=== PATIENT | female | born 1950 | race Hispanic/Latino ===

== ENCOUNTER 2020-02-28 09:51 | Emergency (ER) | payer MEDICARE ==
[~2020-02-28] VITALS: Ht 160 cm; Wt 58.1 kg
[~2020-02-28 09:51] MED LIST: CELEBREX100 MG PO; LOSARTAN POTASS25 MG PO; SIMVASTATIN40 MG PO; ZOLOFT25 MG PO; [UNRECOGNIZED DRUG - REMARK]
[2020-02-28 10:52] LABS: ABG HCO3 17 mmol/L (22-26); ABG PCO2 25 mmHg (35-45); ABG PH 7.43 (7.35-7.45); ABG PO2 101 mmHg (80-105); ABG TCO2 17
[2020-02-28 10:53] LABS: BASOPHILS # (AUTO) 0.1 (0.0-0.1); BASOPHILS % 1.4 % (0.0-1.0); EOSINOPHILS # (AUTO) 0.1 (0.0-0.4); EOSINOPHILS % 1.7 % (0.0-6.0); HEMATOCRIT 25.6 % (34.2-44.1); HEMOGLOBIN 7.3 g/dL (12.0-16.0); LYMPHOCYTES % 27.5 % (18.0-39.1); MEAN CORPUSCULAR HEMOGLOBIN 17.8 pg (28-32); MEAN CORPUSCULAR HGB CONC 28.5 g/dL (31-35); MEAN CORPUSCULAR VOLUME 62.6 fL (81-99); MONOCYTES # (AUTO) 0.6 (0.2-0.8); MONOCYTES % 7.8 % (4.4-11.3); NEUTROPHILS # (AUTO) 4.4 (2.1-6.9); NEUTROPHILS % 60.9 % (38.7-80.0); PLATELET COUNT 464 x10e3/uL (140-360); RED BLOOD COUNT 4.09 x10e6/uL (3.6-5.1); RED CELL DISTRIBUTION WIDTH 26.5 % (11.7-14.4)
--- OUTSIDE RECORDS SUMMARY | 2020-02-28 10:56 | XMS REPORT | Clinical Summary ---
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 Active simvastatin (ZOCOR) 40 MG Take 40 mg by 0 03/06 tablet mouth every 7 morning. Active sertraline (ZOLOFT) 50 MG Take 50 mg by 0 tablet mouth daily. 7 Active estrogens-methyltestoster Take 1 tablet 0 one (ESTRATEST HS) by mouth 0.625-1.25 mg per tablet daily. Active gabapentin (NEURONTIN) Take 300 mg 0 300 mg capsule by mouth 3 (three) times a day. Active zolpidem (AMBIEN) 10 mg Take 10 mg by 0 tablet mouth nightly as needed for sleep. 04/21/2019 traMADol (ULTRAM) 50 mg Take 1 tablet 75 tablet 0 tabletIndications: (50 mg total) 9 chronic pain by mouth every 8 (eight) hours as needed for moderate pain for up to 30 days .chronic pain. 06/10/2019 traMADol (ULTRAM) 50 mg Take 1 tablet 40 tablet 0 tabletIndications: acute (50 mg total) 9 pain, chronic pain by mouth every 6 (six) hours as needed for moderate pain for up to 30 days .Acute Pain, chronic pain. 07/15/2019 Discontinued (Stop Taking at Discharge) celecoxib (CeleBREX) 200 Take 200 mg 0 MG capsule by mouth 2 (two) times a day. 07/17/2019 cephalexin (KEFLEX) 500 Take 1 20 capsule 0 MG capsule capsule (500 0 mg total) by mouth 4 (four) times a day for 5 days. 08/14/2019 methocarbamol (ROBAXIN) Take 1 tablet 120 tablet 0 500 MG tablet (500 mg 0 total) by mouth 4 (four) times a day as needed for muscle spasms for up to 30 days. 08/14/2019 celecoxib (CeleBREX) 200 Take 1 180 capsule 3 0 MG capsule capsule (200 0 mg total) by mouth 2 (two) times a day for 30 days. 07/15/2019 Discontinued (Stop Taking at Discharge) celecoxib (CeleBREX) 200 Take 1 180 capsule 3 0 MG capsule capsule (200 0 mg total) by mouth 2 (two) times a day for 30 days. 07/15/2019 Discontinued (Stop Taking at Discharge) celecoxib (CeleBREX) 200 Take 1 180 capsule 3 0 MG capsule capsule (200 0 mg total) by mouth 2 (two) times a day for 30 days. 08/31/2019 HYDROcodone-acetaminophen Take 1 tablet 40 tablet 0 (NORCO) 10-325 mg per by mouth 0 tabletIndications: acute every 6 (six) pain hours as needed for moderate pain for up to 30 days .acute pain. Max Daily Amount: 4 tablets 08/31/2019 traMADol (ULTRAM) 50 mg Take 1 tablet 40 tablet 0 tabletIndications: acute (50 mg total) 0 pain, chronic pain by mouth every 6 (six) hours as needed for moderate pain for up to 30 days .acute pain, chronic pain. 08/31/2019 celecoxib (CeleBREX) 200 Take 1 60 capsule 0 0 MG capsule capsule (200 0 mg total) by mouth 2 (two) times a day for 30 days. 08/31/2019 methocarbamol (ROBAXIN) Take 1 tablet 120 tablet 0 500 MG tablet (500 mg 0 total) by mouth 4 (four) times a day for 30 days. 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 difficile colitis 05/20/2017 Ulcerative rectosigmoiditis, with rectal bleeding Acute blood loss anemia 05/18/2017 Hyponatremia 05/18/2017 Bilateral carpal tunnel syndrome Cervical disc disorder at C6-C7 level w ith radiculopathy Cubital tunnel syndrome, bilateral Encounters Care Team Description Date Type Specialty Mirna Cheng MA 08/18/2019 Telephone Orthopedic Surgery Davie Fitzpatrick MD S/P reverse total shoulder arthroplasty, left (Primary Dx) 08/01/2019 Office Visit Orthopedic Surgery Mirna Cheng MA 08/01/2019 Abstract Orthopedic Surgery Davie Fitzpatrick MD Arthritis of left shoulder region (Prima ry Dx) 07/27/2019 Office Visit Orthopedic Surgery Mirna Cheng MA Arthritis of left shoulder region (Prima ry Dx) 07/26/2019 Orders Only Orthopedic Surgery Davie Fitzpatrick MD 07/18/2019 Abstract Orthopedic Surgery Dwight Gillespie 07/15/2019 Patient Quality Outreach Davie Fitzpatrick MD LEFT REVERSE TOTAL SHOULDER REPLACEMENT 07/14/2019 Surgery Orthopedic Surgery Charli Griffith II, MD [place], Miriam, NP 07/14/2019 Anesthesia Orthopedic Surgery Event Davie Fitzpatrick MD Arthritis of left shoulder region 07/14/2019 Hospital Orthopedic Surgery - Encounter 07/15/2019 Davie Fitzpatrick MD 07/13/2019 Telephone Orthopedic Surgery Mirna Cheng MA 07/12/2019 Orders Only Orthopedic Surgery Davie Fitzpatrick MD Preoperative examination (Primary Dx) 07/07/2019 Pre-Admit Pre-Admission Testi ng Testing Appointment Mirna Cheng MA 07/04/2019 Telephone Orthopedic Surgery Caroline Alves MA Lumbar radiculopathy (Primary Dx); Cervical myelopathy (HCC) 06/10/2019 Orders Only Neurosurgery Edenilson Kenny MD Lumbar radiculopathy 06/09/2019 Hospital Radiology Encounter Edenilson Kenny MD Lumbar spondylosis (Primary Dx) 06/09/2019 Office Visit Neurosurgery Caroline Alves MA Lumbar radiculopathy (Primary Dx) 06/09/2019 Orders Only Neurosurgery Davie Fitzpatrick MD 05/18/2019 Telephone Orthopedic Surgery Davie Fitzpatrick MD Bilateral shoulder region arthritis ([facility] Dx); Complete tear of left rotator cuff, unspecified whether traumatic; Incomplete tear of right rotator cuff, unspecified whether traumatic 05/11/2019 Office Visit Orthopedic Surgery Davie Fitzpatrick MD 05/05/2019 Hospital Radiology Encounter Mirna Cheng MA 04/26/2019 Telephone Orthopedic Surgery Davie Fitzpatrick MD Bilateral shoulder region arthritis 04/20/2019 Hospital Radiology Encounter Davie Fitzpatrick MD Bilateral shoulder region arthritis 04/20/2019 Hospital Radiology Encounter Davie Fitzpatrick MD Bilateral shoulder region arthritis ([facility] Dx) 04/04/2019 Office Visit Orthopedic Surgery Garrett Cesar MD Chronic pain syndrome (Primary Dx); Chronic bilateral low back pain with left-sided sciatica; Lumbar radiculopathy 03/22/2019 Office Visit Pain Medicine Derrek Nielson MD 02/28/2019 Hospital Radiology Encounter Derrek Nielson MD Cervical myelopathy (HCC) (Primary Dx); S/P cervical spinal fusion 02/28/2019 Office Visit Neurosurgery after 02/27/2019 Immunizations Name Administration Dates Next Due FLUCELVAX QUAD PF 09/09/2018, 05/18/2017 Social History Date Tobacco Use Types Packs/Day Years Used Former Smoker Cigarettes 0.25 10 Smokeless Tobacco: Never Used Tobacco Cessation: Ready to Quit: Yes; C ounseling Given: Yes Comments: 3-4 cigarettes per night, trying to quit Drinks/Week oz/Week Comments Alcohol Use No Sex Assigned at Date Recorded Not on file Industry Job Start Date Occupation Not on file Not on file Not on file Travel End Travel History Travel Start No recent travel history available. Last Filed Vital Signs Reading Time Taken Comments Vital Sign 160/70 07/15/2019 12:38 PM [facility] Blood Pressure 60 07/15/2019 12:38 PM [facility] Pulse 36.5 C (97.7 F) 07/15/2019 11:09 AM [facility] Temperature 16 07/15/2019 11:09 AM [facility] Respiratory Rate 100% 07/15/2019 11:09 AM [facility] Oxygen Saturation - - Inhaled Oxygen Concentration 44.6 kg (98 lb 6.4 oz) 07/14/2019 8:27 AM [facility] Weight 152.4 cm (5') 07/14/2019 8:27 AM [facility] Height 19.22 07/14/2019 8:27 AM [facility] Body Mass Index Plan of Treatment Health Maintenance Due Date Last Done Comments BREAST CANCER SCREENING 2000 COLONOSCOPY SCREENING 2000 SHINGLES VACCINES (#1) 2000 65+ PNEUMOCOCCAL VACCINE 2015 (1 of 2 - PCV13) INFLUENZA VACCINE 04/05/2020 09/09/2018, 05/18/2017 Implants Device Identifier Shelf Expiration Date Model / Serial / L ot Implanted Type Area Manufactur er 04/13/2020 [id number] / [id number] / LOT NA Graft Bone Tissue Alice Elite Human N/A: N/A MUSCULOSKE Large 10.6 - [id number] - Tissue LET AL [id number] Implants TRANSPLANT Implanted: Qty: 1 on 09/24/2018 by Derrek Mcghee MD at [facility] [address] 10/14/2019 [id number] / [id number] / [id number] Bone Graft Magnifuse Sc 1 X 20cm - Human N/A: N/A [employer] [id number] - [id number] Tissue SPINAL AND Implanted: Qty: 1 on 09/24/2018 by Implants BIO PownceDerrek Cancino MD at [facility] [address] 12/04/2019 [id number] / / [id number] Kit Bone Grft Thred Intrbdy Xsm Ti Human N/A: N/A [employer] Infuse - [id number] Tissue SPINAL AND Implanted: Qty: 1 on 09/24/2018 by Implants TinyMob GamesDerrek Cancino MD at [facility] [address] 04/06/2026 [id number] / / [id number] Vertex Infinity 5.5x25mm Screw - IPM MEDTR ONIC [id number] IMPLANT SOFAMOR Implanted: Qty: 1 on 09/24/2018 by DEVICES Derrek Carrasco MD at [facility] 03/04/2026 [id number] / / [id number] Vertex Infinity 5.5x25mm Screw - IPM MEDTR ONIC [id number] IMPLANT SOFAMOR Implanted: Qty: 3 on 09/24/2018 by DEVICES Derrek Carrasco MD at [facility] [id number] / / Vertex Infinity Set Screw - IPM N/A: N/A ME DTRONIC [id number] IMPLANT SOFAMOR Implanted: Qty: 13 on 09/24/2018 by DEVICES Derrek Smith MD at [facility] [id number] / / Multi Axial Screw [id number] 3.5 X IPM N/A: N/A MEDTR[employer]IC 22mm - [id number] IMPLANT SOFAMOR Implanted: Qty: 2 on 09/24/2018 by DEVICES Derrek Carrasco MD at [facility] [id number] / / Vertex Infinity 3.5x14mm Screw - IPM N/A: N/A [employer] [id number] IMPLANT SOFAMOR Implanted: Qty: 5 on 09/24/2018 by DEVICES Derrek Carrasco MD at [facility] [id number] / / [id number] 3.5 X 300 Mm [place] Chrome Straight IPM ME DTRONIC Billy - [id number] IMPLANT SOFAMOR Implanted: Qty: 2 on 09/24/2018 by DEVICES Derrek Carrasco MD at [facility] 03/13/2024 [id number] / / [id number] 4.5mm Peripheral Screw - 24mm - IPM Left: Shoulder BLAINE [id number] IMPLANT ORTHOPEDIC Implanted: 07/14/[address] [facility] (Quantity not on file) 05/11/2024 [id number] / / [id number] 4.5mm Peripheral Screw - 32mm - IPM Left: Shoulder BLAINE [id number] IMPLANT ORTHOPEDIC Implanted: 07/14/[address] [facility] (Quantity not on file) 04/11/2024 [id number] [id number] / / [id number] 4.5mm Peripheral Screw - 52mm - IPM Left: Shoulder BLAINE [id number] IMPLANT ORTHOPEDIC Implanted: Qty: 1 on 07/14/[address] [facility] 10/31/2023 [id number] / / [id number] Reunion S Press-Fit Humeral Stem, IPM Left: Should er BLAINE 10mm - [id number] IMPLANT ORTHOPEDIC Implanted: 07/14/[address] [facility] (Quantity not on file) 11/03/2023 5573 2E 3606 / / [id number] Glenosphere - 36mm Loretta X 6mm Thk IPM Left: Shoulde r BLAINE 2mm Eccentric - [id number] IMPLANT ORTHOPEDIC Implanted: Qty: 1 on 07/14/[address] [facility] 04/20/2023 [id number] [id number] / / [id number] 6.5mm Center Screw - 32mm - IPM Left: Shoulder ST JOSH [id number] IMPLANT ORTHOPEDIC Implanted: 07/14/[address] [facility] (Quantity not on file) 03/02/2024 5572 [id number] / / [id number] Shoulder Glenoid Baseplate Reunion IPM Left: Shoul sveta BLAINE Rsa - [id number] IMPLANT ORTHOPEDIC Implanted: 07/14/[address] [facility] (Quantity not on file) 03/19/2024 5570 3604 / / [id number] Humeral Cup - 36mm Loretta X 4mm Thk - IPM Left: Shoul sveta BLAINE [id number] IMPLANT ORTHOPEDIC Implanted: Qty: 1 on 07/14/[address] [facility] 09/24/2023 5571 S 3606 / / [id number] Humeral Insert - 36mm X 6mm IPM Left: Shoulder BLAINE Standard - [id number] IMPLANT ORTHOPEDIC Implanted: 07/14/[address] [facility] (Quantity not on file) 04/25/2023 [id number] 4540 / / [id number] 4.5mm Peripheral Screw - 40mm - IPM Left: Shoulder BLAINE [id number] IMPLANT ORTHOPEDIC Implanted: 07/14/[address] [facility] (Quantity not on file) 08/05/2020 [id number] / / [id number] Pin Skull Fxtn Ss Adult - Neurosurgi N/A: N/A INTE GRA [id number] glenn [employer] Implanted: Qty: 1 on 09/24/2018 by Derrek Ceron MD at [facility] [address] Device Identifier Shelf Expiration Date Model / Serial / L ot Explanted Type Area Manufactur er 11/10/2023 [id number] / / [id number] 6.5mm Center Screw - 32mm - IPM Left: Shoulder ST JOSH [id number] IMPLANT ORTHOPEDIC Implanted: 07/14/2019 (Quantity not DEVICES S on file) Explanted: 07/14/2019 at [facility] (Quantity not on file) Procedures Comments Procedure Name Priority Date/Time Associated Diag nosis XR SHOULDER 2+ VW LEFT Routine 08/01/2019 Arthrit is of left 3:48 PM [facility] shoulder region ESTIMATED GFR Routine 07/14/2019 4:57 PM [facility] CREATININE LEVEL Routine 07/14/2019 4:57 PM [facility] POC GLUCOSE Routine 07/14/2019 11:30 AM [facility] SURGICAL PATHOLOGY Routine 07/14/2019 REQUEST 11:00 AM [facility] TRANSFUSE RED BLOOD CELLS Routine 07/14/2019 10:34 AM [facility] ARTERIAL LINE Routine 07/14/2019 9:44 AM [facility] MD AN ELECTIVE Routine 07/14/2019 ENDOTRACHEAL AIRWAY 9:21 AM [facility] SHOULDER REPLACEMENT, 07/14/2019 Arthritis of le ft TOTAL, REVERSE 9:08 AM [facility] shoulder region Case Notes BEACH CHAIR POSITION, INTERSCALE NE BLOCK W/ PAIN PUMP, SHOULDER ULTRA SLING Special Needs BEACH CHAIR POSITION, INTERSCALE NE BLOCK W/ PAIN PUMP, SHOULDER ULTRA SLING ANESTHESIA PERIPHERAL Routine 07/14/2019 BLOCK 8:53 AM [facility] POC GLUCOSE Routine 07/14/2019 8:36 AM [facility] GRAM STAIN Routine 07/07/2019 2:14 PM [facility] URINE CULTURE Routine 07/07/2019 2:14 PM [facility] ECG PRE/POST OP Routine 07/07/2019 Preoperative e xamination 12:16 PM [facility] URINALYSIS SCREEN AND Routine 07/07/2019 Preopera tive examination MICROSCOPY, WITH REFLEX 12:05 PM [facility] TO CULTURE PREPARE RBC Routine 07/07/2019 12:04 PM [facility] ESTIMATED GFR Routine 07/07/2019 12:04 PM [facility] TYPE AND SCREEN Routine 07/07/2019 Preoperative e xamination 12:04 PM [facility] HEMOGLOBIN A1C Routine 07/07/2019 Preoperative ex amination 12:04 PM [facility] CBC HEMOGRAM Routine 07/07/2019 Preoperative ex amination 12:04 PM [facility] COMPREHENSIVE METABOLIC Routine 07/07/2019 Preope rative examination PANEL 12:04 PM [facility] XR LUMBAR SPINE AP Routine 06/09/2019 Lumbar radi culopathy LATERAL FLEXION AND 2:28 PM [facility] EXTENSION MRI SHOULDER WO CONTRAST Routine 05/05/2019 Bilat eral shoulder region LEFT 9:10 AM CDT arthritis MRI SHOULDER WO CONTRAST Routine 04/20/2019 Bilat eral shoulder region RIGHT 3:45 PM CDT arthritis EMG Routine 04/14/2019 Bilateral shoul sveta region 2:36 PM CDT arthritis XR SHOULDERS BILATERAL Routine 04/04/2019 Acute p ain of both 1:27 PM CDT shoulders after 02/27/2019 Results * XR Shoulder 2+ Vw Left (08/01/2019 3:48 PM [facility]) Specimen Narrative Performed At [facility] Status post left reverse tsa without lo osening or fracture Performing Organization Address City/State/Zipcode Ph one Number [facility] [address] [place] [address] * Estimated GFR (07/14/2019 4:57 PM [facility]) Only the most recent of 2 results within the time period is included. Estimated GFR >=90 mL/min/1.73 m2 [facility] Comment: RELIGION [facility] Interpretation G1 >=90 Normal or high G2 60-89 Mildly decreased G3a 45-59 Mildly to moderately decreased G3b 30-44 Moderately to severely decreased G4 15-29 Severely decreased G5 <15 Kidney failure The eGFR was calculated using the Chronic Kidney Disease Epidemiology Collaboration (CKD-EPI) equation. Interpretation is based on recommendations of the National Kidney Foundation-Kidney Disease Outcomes Quality Initiative (NKF-KDOQI) published in 2014. Specimen Plasma specimen Performing Organization Address City/[facility] one Number [facility] DEPARTMENT OF [address] [place] [address] PATHOLOGY AND GENOMIC MEDICINE [address] * Creatinine level (07/14/2019 4:57 PM [facility]) Pathologist [facility] Creatinine 0.59 0.50 - 0.90 mg/dL [facility] Specimen Plasma specimen Performing Organization Address [facility] one Number [facility] DEPARTMENT OF [address] [place] [address] PATHOLOGY AND GENOMIC MEDICINE [address] * POC glucose (07/14/2019 11:30 AM [facility]) Only the most recent of 2 results within the time period is included. [facility] POC glucose 113 (H) 65 - 99 mg/dL [facility] Comment: RELIGION It Business Analyst Name: [facility] Device ID: [id number] Chartable: [facility] Notified RN Specimen Performing Organization Address [facility] one Number [facility] DEPARTMENT OF [address] [place] [address] PATHOLOGY AND GENOMIC MEDICINE [address] * Surgical pathology request (07/14/2019 11:00 AM [facility]) Pathologist [facility]PART[facility] OF PATHOLOGY AND GENOMIC MEDICINE Surgical See link below for PDF Lab [facility] pathology Report OF PATHOLOGY report AND GENOMIC MEDICINE Result status This is Final Report for [facility] [id number] OF PATHOLOGY AND GENOMIC MEDICINE Specimen Performing Organization Address [facility] one Number [facility] DEPARTMENT OF [address] [place] [address] PATHOLOGY AND GENOMIC MEDICINE * Transfuse RBC (07/14/2019 10:34 AM [facility]) * Arterial line (07/14/2019 9:44 AM [facility]) Narrative Performed At [facility] 07/14/2019 9:44 AM Arterial line Performed by: Charli Griffith II, M D Authorized by: Charli Griffith II, MD Patient Location: OR Start Time: 07/14/2019 9:44 AM End Time: 07/14/2019 9:44 AM Staff: Performed by: Anesthesiologist Pre-procedure: patient identified, IV c hecked, site and side verified, risks and benefits discussed, procedure verified, surgical consent complete, patient position confirmed, m onitors and equipment checked and pre-op evaluation complete MSBT: antiseptic used, hand hygiene per formed and cap/gown used by other personnel Indications: Indications: hemodynamic monitoring Anesthesia: Anesthesia: General Procedure Details: Arterial Line placement: Placed pos t induction Line placement site: Radial Line placement side: Right Arterial line gauge: 20 G Number of attempts: 1 Ultrasound guidance used: Yes Post-procedure: Post-procedure: Sterile dressing ap plied Post procedure circulation, sensation , movement: Unable to assess Patient tolerance: Patient tolerate d the procedure well with no immediate complications * Airway (07/14/2019 9:21 AM [facility]) Narrative Performed At [facility] 07/14/2019 10:20 A M Airway Date/Time: 07/14/2019 9:21 AM Performed by: Charli Griffith II, M D Authorized by: Charli Griffith II, MD Location: OR Urgency: Elective Difficult Airway: No Resident/LAW FIRM CONSULTANT/AA: [facility] Performed by: resident/LAW FIRM CONSULTANT/AA Preoxygenated with 100% O2: Yes C-spine Precautions Maintained Througho ut: Yes Mask Ventilation: Easy mask Final Airway Type: Endotracheal airwa y Final Endotracheal Airway: ETT Cuffed: Yes Technique Used: Video laryngoscopy Devices/Methods Used in Placement: In tubating stylet Insertion Site: Oral Blade Type: Riley Laryngoscope Blade/Videolaryngoscope Bl emelia Size: 3 ETT Size (mm): 7.0 Cuff at minimum occlusion pressure: Yes Measured from: Lips ETT to Lips (cm): 21 Placement Verified by: CO2 detection, d irect visualization and equal breath sounds Laryngoscopic view: Grade I - full vi ew of glottis Number of Attempts at Approach: 1 #3 glidescope used for intubation d/t p revious spinal surgery. Atraumatic. Dentition unchanged * Peripheral Block (07/14/2019 8:53 AM [facility]) Narrative Performed At Charli Griffith II, MD 07/14/19 8:53 AM Peripheral Block Performed by: Charli Griffith II, M D Authorized by: Charli Griffith II, MD Patient Location: Pre-op Start Time: 07/14/2019 8:40 AM End Time: 07/14/2019 8:51 AM Reason for Block: at surgeon's request, post-op pain management Staff: Performed by: Anesthesiologist Preprocedure: patient identified, IV ch ecked, site and side verified, risks and benefits discussed, procedure verified, surgical consent complete, patient position confirmed, m onitors and equipment checked, pre-op evaluation complete, site marked and coagulation status reviewed Peripheral Nerve Block: Patient Position: Supine Prep: ChloraPrep Monitoring: Blood pressure monitori ng, continuous pulse oximetry and heart rate Block Type: Interscalene Laterality: Left Injection Technique: Catheter inserti on Procedures: ultrasound guided Ultrasound documentation: Images save d on hard disk and printed/placed in chart Local Infiltration (See MAR for details ): Ropivacaine Needle: Needle Type: Pajunk Needle Gauge: 19 G Needle Length: 10 cm Catheter Size: 20 G Catheter at Skin Depth: 6 cm Assessment: Injection Assessment: Visualized ne edle/local anesthetic surrounding nerve, visualized pertinent vascular st ructures and nerves, needle tip visualized at all times during injectio n of medication, no symptoms of intraneural/intravenous injection and i ntermittent aspiration during local anesthetic administration Paresthesia Pain: None Heart Rate Change: No Slow Fractionated Injection: Yes Block outcome: No apparent complica tions, patient comfortable and patient tolerated procedure well * Gram stain (07/07/2019 2:14 PM [facility]) Gram stain No WBC's or organisms seen. [facility] result Comment: RELIGION Specimen Information HOSPITAL Specimen Source: Urine Specimen Site: Clean catch Specimen Urine Performing Organization Address City/State/Zipcode Ph one Number [facility] DEPARTMENT OF [address] [place] [address] PATHOLOGY AND GENOMIC MEDICINE [address] * Urine culture (07/07/2019 2:14 PM [facility]) Urine culture Escherichia coli MARISSA isolate 10-4 cfu/ml RELIGION [facility] HOSPITAL characteristics of this assay on this isolate were validated by the Microbiology Laboratory at [facility]. This source has not been approved by the U.S. Food and Drug Administration. The results are not intended to be used as the sole means for clinical diagnosis or patient management. The Microbiology Laboratory is authorized under the clinical Laboratory Improvement Amendments of 1988 (CLIA-88) to perform high complexity testing. (A) Comment: Specimen Information Specimen Source: Urine Specimen Site: Clean catch Specimen Urine Antibiotic Method Susceptibility Organism Ampicillin RANDY >16 mcg/mL: Resistant Escherichia coli Amoxicillin/Clavulanate RANDY >16/8 mcg/mL: Resistant Escherichia coli Amikacin RANDY <=4 mcg/mL: Susceptible Escherichia coli Aztreonam RANDY <=1 mcg/mL: Susceptible Escherichia coli Ceftazidime RANDY <=0.5 mcg/mL: Susceptible Escherichia coli Ciprofloxacin RANDY >2 mcg/mL: Resistant Escherichia coli Ceftriaxone RANDY <=0.5 mcg/mL: Susceptible Escherichia coli Cefuroxime Sodium RANDY 8 mcg/mL: Susceptible Escherichia coli Cefazolin RANDY 8 mcg/mL: Resistant Escherichia coli Cefepime RANDY <=0.5 mcg/mL: Susceptible Escherichia coli Nitrofurantoin RANDY <=16 mcg/mL: Susceptible Escherichia coli Cefoxitin RANDY 8 mcg/mL: Susceptible Escherichia coli Gentamicin RANDY 2 mcg/mL: Susceptible Escherichia coli Imipenem RANDY <=0.25 mcg/mL: Susceptible Escherichia coli Levofloxacin RANDY >4 mcg/mL: Resistant Escherichia coli Meropenem RANDY <=0.125 mcg/mL: Susceptible Escherichia coli Tobramycin RANDY 1 mcg/mL: Susceptible Escherichia coli Ampicillin/Sulbactam RANDY >16/8 mcg/mL: Resistant Escherichia coli Trimethoprim/Sulfamethoxazole RANDY >2/38 mcg/mL: Resistant Escherichia coli Tetracycline RANDY <=1 mcg/mL: Susceptible Escherichia coli Piperacillin/Tazobactam RANDY >64/4 mcg/mL: Resistant Escherichia coli Ertapenem RANDY <=0.125 mcg/mL: Susceptible Escherichia coli Tigecycline RANDY <=0.5 mcg/mL: Susceptible Escherichia coli Performing Organization Address City/State/Zipcode Ph one Number [facility] DEPARTMENT OF [address] [place] [id number] PATHOLOGY AND GENOMIC MEDICINE [place] [facility] [address] [place] [address] HOSPITAL * ECG Pre/Post Op (07/07/2019 12:16 PM [facility]) Ventricular 54 [facility] rate Atrial rate 54 [facility] MD interval 124 [facility] QRSD interval 124 [facility] QT interval 434 [facility] QTC interval 411 [facility] P axis 1 59 [facility] QRS axis 1 17 [facility] T wave axis 56 [facility] EKG impression Sinus bradycardia-Right bundle [facility] MU SE branch block-Abnormal ECG-In automated comparison with ECG of 23-AUG-2018 08:44,-Right bundle branch block has replaced Incomplete right bundle branch block- Specimen Narrative Performed At This result has an attachment that is n ot available. Performing Organization Address City/[facility] Ph one Number [facility] MUSE [address] [place] [address] * Urinalysis screen and microscopy, with reflex to culture (07/07/2019 12:05 PM [facility]) Specimen site Clean catch [facility] Color, UA Straw [facility] Appearance, UA Clear [facility] Specific 1.014 1.001 - 1.035 [place] gravity, [facility] pH, UA 7.0 5.0 - 8.5 [facility] Protein, UA Negative Negative [facility] Glucose, UA Negative Negative [facility] Ketones, UA Negative Negative [facility] Bilirubin, UA Negative Negative [facility] Blood, UA Negative Negative [facility] Nitrite, UA Negative Negative [facility] Urobilinogen, <2.0 <2.0 [facility] Leukocyte Trace (A) Negative [place] esterase, [facility] Epithelial 2 /HPF [place] cells, [facility] Round 1 0 - 1 /HPF [place] epithelial RELIGION cells, HOSPITAL WBC, UA 4 0 - 4 /HPF [facility] RBC, UA <1 0 - 5 /HPF [facility] Bacteria, UA None seen None seen [facility] Yeast, UA None seen [facility] Yeast with None seen [place] [facility] Hyaline casts, 1 /LPF [facility] Specimen Urine Performing Organization Address City/[facility] Ph one Number [facility] DEPARTMENT OF [address] [place] [address] PATHOLOGY AND GENOMIC MEDICINE [address] * CBC hemogram (07/07/2019 12:04 PM [facility]) WBC 6.52 4.50 - 11.00 k/uL [facility] RBC 3.76 (L) 4.20 - 5.50 m/uL [facility] HGB 9.7 (L) 12.0 - 16.0 g/dL [facility] HCT 31.1 (L) 37.0 - 47.0 % [facility] MCV 82.7 82.0 - 100.0 fL [facility] MCH 25.8 (L) 27.0 - 34.0 pg [facility] MCHC 31.2 31.0 - 37.0 g/dL [facility] RDW - SD 55.8 (H) 37.0 - 55.0 fL [facility] MPV 9.8 8.8 - 13.2 fL [facility] Platelet count 371 150 - 400 k/uL [facility] Nucleated RBC 0.00 /100 WBC [facility] Specimen Blood Performing Organization Address [facility] Ph one Number [facility] DEPARTMENT OF [address] [place] [address] PATHOLOGY AND GENOMIC MEDICINE [address] * Prepare RBC (07/07/2019 12:04 PM [facility]) Product name Apheresis -1 LR #2 [facility] Unit number [id number] [facility] Product code [id number] [facility] Dispense status Transfused [facility] Blood [id number] [place] expiration date [facility] Blood type code 5100 [facility] Blood type O POSITIVE [facility] Compatibility Compatible [facility] Product name Red Blood Cells -1, Leukored [facility] Unit number [id number] [facility] Product code [id number] [facility] Dispense status Returned to BB not transfused [facility] Blood [id number] [place] expiration date [facility] Blood type code 5100 [facility] Blood type O POSITIVE [facility] Compatibility Compatible [facility] Specimen Performing Organization Address City/[facility] Ph one Number [facility] DEPARTMENT OF [address] [place] [address] PATHOLOGY AND GENOMIC MEDICINE [address] * Type and screen (07/07/2019 12:04 PM [facility]) ABO grouping O [facility] Rh type POS [facility] Antibody screen NEG [place] (gel) [facility] Specimen Blood Performing Organization Address City/State/Zipcode Ph one Number [facility] DEPARTMENT OF [address] [place] [address] PATHOLOGY AND GENOMIC MEDICINE [address] * Hemoglobin A1c (07/07/2019 12:04 PM [facility]) Hemoglobin A1C 6.4 (H) 4.0 - 5.6 % [place] Comment: [facility]IGION HbA1c cutoffs for diagnosing HOSPITAL diabetes: 4.0% - 5.6% = normal 5.7% - 6.4% = increased risk for diabetes (prediabetes)9 >=6.5% = diabetes9 Goals for glycemic control (ADA 2016) < 7.0% Target for non adults with diabetes. More or less stringent targets may be appropriate for individual patients. <7.5% Target for Children and adolescents with type 1 diabetes. Specimen Blood Performing Organization Address [facility] Ph [facility] Number [facility] DEPARTMENT OF [address] [place] [address] PATHOLOGY AND GENOMIC MEDICINE [address] * Comprehensive metabolic panel (07/07/2019 12:04 PM [facility]) Sodium 141 135 - 148 mEq/L [facility] Potassium 4.2 3.5 - 5.0 mEq/L [facility] Chloride 102 98 - 112 mEq/L [facility] CO2 23 (L) 24 - 31 mEq/L [facility] Anion gap 16@ANIO (H) 7 - 15 mEq/L [facility] BUN 20 8 - 23 mg/dL [facility] Creatinine 0.61 0.50 - 0.90 mg/dL [facility] Glucose 71 65 - 99 mg/dL [facility] Calcium 9.4 8.8 - 10.2 mg/dL [facility] Protein 7.1 6.3 - 8.3 g/dL [place] Comment: RELIGION Wisechg6297.6-7.0 g/dL [facility] 1 mbfx4282.4-7.6 g/dL 7 months-0umkj272.1-7.3 g/dL 1-2 endkv680.6-7.5 g/dL >3 uvanw525.0-8.0 g/dL 18-3399229.3-8.3 g/dL Albumin 3.5 3.5 - 5.0 g/dL [facility] A/G ratio 1.0 0.7 - 3.8 [facility] Alkaline 82 35 - 104 U/L [place] phosphatase [facility] AST 13 10 - 35 U/L [facility] ALT 7 5 - 50 U/L [facility] Total bilirubin <0.2 0.0 - 1.2 mg/dL [facility] Specimen Plasma specimen Performing Organization Address City/State[facility] Ph one Number [facility] DEPARTMENT OF [address] [place] [address] [address] [facility] [address] [place] [id number] [place] [address] * XR Lumbar Spine Ap Lateral Flexion And Extension (06/09/2019 2:28 PM [facility]) Specimen Narrative Performed At EXAMINATION: XR LUMBAR SPINE AP LATERAL FLEXION A ND EXTENSION [facility] CLINICAL HISTORY: M54.16 Radiculopath y lumbar region, lumbar radiculopathy COMPARISON: September 21, 2018 IMPRESSION: 4 views of the lumbar spine were obtain ed. 5 nonrib-bearing lumbar type vertebrae. L3-L5 posterior fusion with transpedicu lar screws and interconnecting rods. Laminectomy changes at these levels. So lid bony bridging of the L4-5 disc level. No significant bony bridging of the L3- 4 disc level. Prominent dextroscoliosis centered at t he L2-3 level. Left lateral listhesis at L2-3. Grade 1 anterolisthesis at L2-3. Prominent disc space narrowing and endp late degenerative changes at L2-3. No compression fractures or aggressive bony lesions. No abnormal motion on flexion-extension views. [id number] Procedure Note Interface, Radiology Results Incoming - 06/09/2019 3:55 PM [facility] EXAMINATION: XR LUMBAR SPINE AP LATERAL FLEXION AND EXTENSION CLINICAL HISTORY: M54.16 Radiculopathy lumbar region, lumbar radiculopathy COMPARISON: September 21, 2018 IMPRESSION: 4 views of the lumbar spine were obtaine d. 5 nonrib-bearing lumbar type vertebrae. L3-L5 posterior fusion with transpedicular screws and interconnecting rods. Laminectomy changes at these levels. Solid bony bridging of the L4-5 disc level. No significant bony bridging of the L3-4 disc level. Prominent dextroscoliosis centered at the L2-3 level. Left lateral listhesis at L2-3. Grade 1 anterolisthesis at L2-3. Prominent disc space narrowing and endplate degenerative changes at L2-3. No compression fractures or aggressive bony lesions. No abnormal motion on flexion-extension views. 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 COMPARISON: None available FINDINGS: 1. Rotator cuff: Chronic full-thickness full width retracted tears of the supraspinatus and infraspinatus tendons with retraction of the torn tendon stump to the level of the glenoid by approxim ately 5 cm. The subscapularis tendon demonstrates severe tendinosis with low-grade partial thick ness tearing of the superior subscapularis footprint. 2. Bursa: Moderate subacromial subdelto id bursitis. 3. Biceps tendon: The long head of the biceps tendon is located within the bicipital groove. Severe intra-articula r biceps tendinosis with partial-thickness tearing. 4. Labrum: Circumferentially torn and d egenerated. 5. Acromioclavicular joint: Type II acr omion process. Mild to moderate osteoarthrosis 6. Glenohumeral joint: Superior migrati on of the humeral head with severe narrowing of the acromiohumeral interva l. There is also capsular tearing and laxity of the posterior glenohumeral ca psule with posterior subluxation of the humeral head relative to the glenoid. 7. Articular cartilage: Grade IV chondr omalacia and hbns-hs-pvln apposition. 8. Joint Fluid:A small joint effusion i s present. No definite loose body is seen. Diffuse synovitis. Fluid in the s ubcoracoid bursa consistent with a full-thickness rotator cuff tear. 9. Bone marrow: Osseous remodeling subc hondral edema and cyst formation involving the glenoid more than the pro ximal humerus. No fracture or definite suspicious bony lesion is appreciated. 10. Soft tissues: Severe atrophy of sup raspinatus and infraspinatus. Moderate subscapularis atrophy. Mild to moderate loss of deltoid muscle bulk. IMPRESSION: 1.Superior migration of the humeral hea d with chronic full-thickness full width retracted supraspinatus and infraspinat us tears with severe muscle atrophy. 2.Advanced rotator cuff arthropathy wit h full-thickness chondral loss and qmbj-fn-[id number] apposition. 3.Additional findings and details as ab ove. [id number] Procedure Note Hm Interface, Radiology Results Incoming - 05/05/2019 10:07 AM CDT EXAMINATION: MRI SHOULDER WO CONTRAST LEFT CLINICAL HISTORY: M19.011 Primary osteoarthritis right shoulder, M19.012 Primary osteoarthritis left shoulder, Shoulder pain acute persistent xray and exam nonspecific TECHNIQUE: Multiplanar multisequence MR imaging of the shoulder was performed without contrast. COMPARISON: None available FINDINGS: 1. Rotator cuff: Chronic full-thickness full width retracted tears of the supraspinatus and infraspinatus tendons with retraction of the torn tendon stump to the level of the glenoid by approximately 5 cm. The subscapularis tendon demonstrates severe tendinosis with low-grade partial thickness tearing of the superior subscapularis footprint. 2. Bursa: Moderate subacromial subdeltoi d bursitis. 3. Biceps tendon: The long head of the b iceps tendon is located within the bicipital groove. Severe intra-articular biceps tendinosis with partial- thickness tearing. 4. Labrum: Circumferentially torn and de generated. 5. Acromioclavicular joint: Type II acro mion process. Mild to moderate osteoarthrosis 6. Glenohumeral joint: Superior migratio n of the humeral head with severe narrowing of the acromiohumeral interval. There is also capsular tearing and laxity of the posterior glenohumeral capsule with posterior subluxation of the humeral head relative to the glenoid. 7. Articular cartilage: Grade IV chondro malacia and efgz-bq-hcsd apposition. 8. Joint Fluid:A small joint effusion is present. No definite loose body is seen. Diffuse synovitis. Fluid in the subcoracoid bursa consistent with a full- thickness rotator cuff tear. 9. Bone marrow: Osseous remodeling subch ondral edema and cyst formation involving the glenoid more than the proximal humerus. No fracture or definite suspicious bony lesion is appreciated. 10. Soft tissues: Severe atrophy of supr aspinatus and infraspinatus. Moderate subscapularis atrophy. Mild to moderate loss of deltoid muscle bulk. IMPRESSION: 1.Superior migration of the humeral head with chronic full-thickness full width retracted supraspinatus and infraspinatus tears with severe muscle atrophy. 2.Advanced rotator cuff arthropathy with full-thickness chondral loss and msfm-vf-euzc apposition. 3.Additional findings and details as abo ve. [id number] Performing Organization Address City/State/Zipcode Ph one Number [facility] [address] [place] [address] * MRI Shoulder Wo Contrast Right (04/20/2019 3:45 PM CDT) Specimen Narrative Performed At [facility] EXAMINATION: MRI SHOULDER WO CONTRAST RIGHT CLINICAL HISTORY: M19.011 Primary ost eoarthritis right shoulder, M19.012 Primary osteoarthritis left shoulder, Shoulder pain acute persistent xray and exam nonspecific TECHNIQUE: Multiplanar multisequence MR imaging of the right shoulder was performed without contrast. COMPARISON: X-ray 04/04/2019 IMPRESSION: 1.Motion artifact degrades image qualit y and decreases sensitivity of exam. ROTATOR CUFF: High-grade interstitial i nsertional tear spanning the width of the supraspinatus footprint, overall 13 mm, with retraction of 8 mm. Moderate volumetric though no fatty atrophy. Low -grade interstitial microtearing throughout the infraspinatus footprint without signifi cant retraction. Detail limited by motion. Mild fatty though no volumetric atrophy. Teres minor well maintained. Mild subscapularis tendinosis. LABRUM: Posterosuperior complex tear wi th synovitis interposed between the chondral labral junction. BICEPS TENDON: Mild to moderate extra a rticular bicipital tenosynovitis and intra-articular tendinitis with low-gra de interstitial partial tearing most pronounced towards the anchor. GLENOHUMERAL JOINT: Superior decenterin g of the humeral head. Full-thickness chondral loss across both sides of the glenohumeral joint most pronounced on the glenoid side, with reactive marrow ann ge and cystic formation. BONE MARROW: Reactive changes in the gl enohumeral joint as discussed above. AC JOINT: Hypertrophy of AC joint degen erative in etiology. Acromion has a slight lateral downsloping. Type II mor phology. SOFT TISSUES: Mild subacromial-subdelto id bursitis. Mild subcoracoid bursitis. Coracohumeral interval is narrow, 7 mm, with remodeling of the lesser tuberosity humeral head. Mild volumetric muscle loss of the deltoid, though no fatty atrophy. SUMMARY: 1. Moderate to severe glenohumeral join t OA, with rotator cuff tendinopathy and atrophy as detailed above. Mild volumet miguel muscle loss of the deltoid, though no fatty atrophy. 2.Coracohumeral interval with subscapul ari tendinosis and remodeling of the lesser tuberosity can be correlated for clinical evidence of subcoracoid impingement. 3.Lateral downsloping acromion with mil d subjacent bursitis can be correlated for clinical evidence of external impin gement. 4.Other findings as above. Motion trevino ited study. [id number] Procedure Note Hm Interface, Radiology Results Incoming - 04/20/2019 4:37 PM CDT EXAMINATION: MRI SHOULDER WO CONTRAST RIGHT CLINICAL HISTORY: M19.011 Primary osteoarthritis right shoulder, M19.012 Primary osteoarthritis left shoulder, Shoulder pain acute persistent xray and exam nonspecific TECHNIQUE: Multiplanar multisequence MR imaging of the right shoulder was performed without contrast. COMPARISON: X-ray 04/04/2019 IMPRESSION: 1.Motion artifact degrades image quality and decreases sensitivity of exam. ROTATOR CUFF: High-grade interstitial insertional tear spanning the width of the supraspinatus footprint, overall 13 mm, with retraction of 8 mm. Moderate volumetric though no fatty atrophy. Low-grade interstitial microtearing throughout the infraspinatus footprint without significant retraction. Detail limited by motion. Mild fatty though no volumetric atrophy. Teres minor well maintained. Mild subscapularis tendinosis. LABRUM: Posterosuperior complex tear with synovitis interposed between the chondral labral junction. BICEPS TENDON: Mild to moderate extra articular bicipital tenosynovitis and intra-articular tendinitis with low-grade interstitial partial tearing most pronounced towards the anchor. GLENOHUMERAL JOINT: Superior decentering of the humeral head. Full-thickness chondral loss across both sides of the glenohumeral joint most pronounced on the glenoid side, with reactive marrow change and cystic formation. BONE MARROW: Reactive changes in the glenohumeral joint as discussed above. AC JOINT: Hypertrophy of AC joint degenerative in etiology. Acromion has a slight lateral downsloping. Type II morphology. SOFT TISSUES: Mild subacromial-subdeltoid bursitis. Mild subcoracoid bursitis. Coracohumeral interval is narrow, 7 mm, with remodeling of the lesser tuberosity humeral head. Mild volumetric muscle loss of the deltoid, though no fatty atrophy. SUMMARY: 1. Moderate to severe glenohumeral joint OA, with rotator cuff tendinopathy and atrophy as detailed above. Mild volumetric muscle loss of the deltoid, though no fatty atrophy. 2.Coracohumeral interval with subscapula ris tendinosis and remodeling of the lesser tuberosity can be correlated for clinical evidence of subcoracoid impingement. 3.Lateral downsloping acromion with mild subjacent bursitis can be correlated for clinical evidence of external impingement. 4.Other findings as above. Motion limit ed study. [id number] Performing Organization Address City/State/Zipcode Ph one Number [facility] [address] [place] [address] * EMG General Request (04/14/2019 2:36 PM CDT) Impressions Performed At Ms. Lee complains of bilateral should er pain, states that she has severe pain when she abducts her bilateral arm s, has undergone cervical surgery and is being evaluated for neurogenic c ompromise in the bilateral arms. 1) Median motor latencies are bilateral ly delayed with slightly slowed velocities and small amplitudes. 2) Ulnar motor latencies are bilaterall y normal with borderline normal velocity below the elbow on the right a nd normal velocity below the elbow on the left, both with low normal ampli tudes; velocity is minimally slowed across the right elbow with mild amplit ude drop off and is not slowed across the left elbow but is associated with mild amplitude drop off. 3) Sensory responses: a. Median palmar bilaterally mildly delayed, borderline normal amplitude on right; slightly small amplitude on l eft b. Median digital borderline normal latency on right with slightly diminished amplitude; minimally delayed on left with normal amplitude c. Ulnar absent on right; borderline normal late ncy on left with small amplitude d. Proximal ulnr (between wrist and elb ow) normal on right 4) Intramuscular recordings of the bila teral arms suggest minimal chronic bilateral C6 denervation and mild chron ic bilateral C7 denervation, all as noted above. The study suggests very mild bilateral carpal tunnel syndrome, minimal bilateral cubital tunnel syndrome, mini mal bilateral chronic bilateral C6 radiculopathy and mild bilateral chroni c C7 radiculopathy. Associated intrinsic compromise of the bilateral s houlders cannot be excluded. Jairo May M.D. Narrative Performed At This result has an attachment that is n ot available. NERVE CONDUCTION AND ELECTROMYOGRAPHY [facility], [facility]th Floor; [facility] [address]; Name: Eda Lee Date of Procedure: April 14, 2019 Location: Sex: Female Date of : 50 Referring Physician: Davie Fitzpatrick M.D. FAX: Patient is 5 0 ; 100 lbs.; RA 32.5 C; LA 33.0 C Nerve Conduction (Latencies in msec, Amplitudes uV, Distance cm, Velocity M/Sec) Right Motor Nerves Dist. Lat. Prox lat. D. amp. P. Amp. Dist. Velocity Right Median 4.7 8.8 3.9 3.0 19 .0 45.6 Right Ulnar (below elb) 3.3 5.6 6.4 6.3 11.5 49.2 Right Ulnar (across elb) 8.3 4.4 11.4 43.7 Right Sensory Nerves Dist. Lat. Prox lat. Dist. amp. Prox Amp. Distance Velocity Right Median Palmar 2.6 50.0 8.0 Right Median Digital 3.3 14.0 13. 0 Right Ulnar absent 2.8 abse nt 23.0 11.0 Right Super. Radial 2.4 40.0 10.0 Left Motor Nerves Dist. Lat. Prox lat. D. amp. P. Amp. Dist. Velocity Left Median 5.1 7.3 3.6 3.0 18. 3 43.9 Left Ulnar (below elb) 3.3 5.5 7.1 5.5 11.5 53.0 Left Ulnar (across elb) 8.3 4.9 14.3 57.0 Left Sensory Nerves Dist. Lat. Prox lat. Dist. amp. Prox Amp. Distance Velocity Left Median Palmar 2.8 32.3 8.0 Left Median Digital 3.5 19.0 13.0 Left Ulnar 3.0 7.0 11.0 Left Super. Radial 2.3 41.0 10.0 Electromyography (Motor Unit in mV; H=H igh; L=Low; P=Polyphasic; NS=Non-specific) Right Arm Fibs. Pos. Waves Fasc. P olyphasia Motor Units Recruitment Deltoid wnl wnl wnl wnl wnl wn l Biceps wnl wnl wnl wnl wnl wnl Triceps wnl wnl wnl 20HP wnl - 1 Brachioradialis wnl wnl wnl 20HP wnl NS Ext. Dig. Comm. wnl wnl wnl 20HP wnl -1 1st D. Interosseous wnl wnl wnl wnl wnl wnl Left Arm Fibs. Pos. Waves Fasc. Po lyphasia Motor Units Recruitment Deltoid wnl wnl wnl wnl wnl wn l Biceps wnl wnl wnl wnl wnl wnl Triceps wnl wnl wnl 20HP wnl - 1 Brachioradialis wnl wnl wnl 20HP wnl NS Ext. Dig. Comm. wnl wnl wnl 20HP wnl -1 1st D. Interosseous wnl wnl wnl wnl wnl wnl * XR Shoulders Bilateral (04/04/2019 1:27 PM CDT) Specimen Narrative Performed At [facility] Moderate bilateral shoulder arthritis Performing Organization Address City/State/Zipcode Ph one Number [facility] [address] [place] [address] after 02/27/2019 Insurance Type Payer Benefit Subscriber ID Effective Phone Address Plan / Dates Group Medicare MEDICARE MEDICARE xxxxxxxxxxx 2015- [place], PART A AND Present [place] B Medicaid MEDICAID MEDICAID xxxxxxxxx 2017-P resent [phone] (Home) [place] [id number] Eda Lee Reconstruc Self 1950 [phone] (Home) [place] [address] Surgery Advance Directives For more information, please contact: [phone] Patient Nursing Technician Explanation Type Date Recorded Advance Directives, 09/18/2018 1:07 AM Living Will and Medical Power of Driver [place] Advance Directives, 10/27/2017 8:57 AM Living Will and Medical Power of Driver [place] Advance Directives, 09/14/2018 5:52 AM Living Will and Medical Power of Driver [place] POA/09/08/2018 Advance Directives, 10/12/2018 8:20 AM Living Will and Medical Power of Driver Messenger ADV/10/11/2017 Advance Directives, 10/12/2018 8:20 AM Living Will and Medical Power of Driver Messenger
--- OUTSIDE RECORDS SUMMARY | 2020-02-28 10:56 | XMS REPORT | Continuity of Care Document ---
Author Author [facility] t Organization [facility] Address [address] [place] [address] Phone Unavailable Care Team Providers Care Oracle Adf Developer Name Role Phone Bishop MEYER, Kumar Yates PCP Amari MEYER, Davie Attphys Prosper ELLIS, Mirna Attphys Unavailable [facility], Dwight Attphys Unavailable Gladis MEYER, Rajendra Augustin Attphys [facility] Hospital[facility] COMBINATION WORKER, Sarah Beth Attphys [phone] Long ELLIS, Caroline Attphys Unavailable Efraín MEYER, Josseline Attphys Arsenio MEYER, Mehdi Tucker Attphys Nisreen MEYER, Derrek Attphys DAVIE KRISHNAN Admphys Unavailable Payers Payer Name Policy Type Policy Number Effective Date Expiration Date S francy MEDICAREMEDICARE PART A AND [id number]-PresentHOU [facility]ERTIN [facility] 2015 00:00:00 Carl Holly ME[id number] xxxxxxxxx 2017 00:00:00 Carl Holly Problems Condition Name Condition Details Condition Category Status Onset Date Resolution Date Last Treatment Date Treating Clinician Comments Source Shoulder arthritis Shoulder arthritis Disease Active 2019-07-14 00:00:0 0 Carl Holly Arthritis of left shoulder region Arthritis of left shoulder reg ion Disease Active 2019-07-14 00:00:00 Dena kennedy Religion Back pain Back pain Disease Active 2018-09-18 00:00:00 Carl Holly Chronic pain Chronic pain Disease Active 2018-09-08 00:00:00 Carl Holly Attention to colostomy Attention to colostomy Disease Active 2017-10-22 00:00:[address] Iron deficiency anemia due to chronic blood loss Iron deficiency anemia due to chronic blood loss Disease Active 2017-10-22 00:00:00 Carl Holly Stercoral ulcer of rectum Stercoral ulcer of rectum Disease Ac tive 2017-08-18 00:00:00 Carl sol Rectal abscess Rectal abscess Disease Active 2017-05-20 00:00:00 Carl Holly C. difficile colitis C. difficile colitis Disease Active 00:00:00 Carl Holly Ulcerative rectosigmoiditis, with rectal bleeding Ulce rative rectosigmoiditis, with rectal bleeding Disease Active 2017-05-18 00:00:00 Carl Holly Acute blood loss anemia Acute blood loss anemia Disease Active 2017-05-18 00:00:00 Carl sol Hyponatremia Hyponatremia Disease Active 2017-05-18 00:00:00 Carl Holly Bilateral carpal tunnel syndrome Bilateral carpal tunnel syndrom e Disease Active Carl Farrar isivelisse Cervical disc disorder at C6-C7 level with radiculopat hy Cervical disc disorder at C6-C7 level with radiculopathy Disease Active Carl Holly Cubital tunnel syndrome, bilateral Cubital tunnel syndrome, bila teral Disease Active Carl Farrar ist Allergies, Adverse Reactions, Alerts This patient has no known allergies or adverse reactions. Social History Social Habit Start Date Stop Date Quantity Comments Source History of tobacco use Cigarette Smoker Carl Holly Sex Assigned At [facility] Religion Cigarettes smoked current (pack per day) - Reported 00:00:00 2019-08-01 00:00:00 Carl Holly Cigarette pack-years 2019-08-01 00:00:00 2019-08-01 00:00:00 Carl Holly Alcohol intake 2019-08-01 00:00:00 2019-08-01 00:00:00 Current non-drinker of alcohol (finding) Carl Holly Tobacco Comment 2019-07-07 00:00:00 2019-07-07 00:00:00 3-4 ciga rettes per night, trying to quit Carl Holly Smoking Status Start Date Stop Date Source Former smoker 2019-08-01 00:00:00 2019-08-01 00:00:00 Carl Holly Medications Ordered Medication Name Filled Medication Name Start Date Stop Da te Current Medication? Ordering Clinician Indication Dosage Frequency Signature (SIG) Comments Components Source estrogens-methyltestosterone (ESTRATEST HS) 0.625-1.25 mg pe r tablet 2019-08-01 15:18:21 Yes 1{tbl} QD Take 1 tablet by m outh daily. Carl Holly gabapentin (NEURONTIN) 300 mg capsule 2019-08-01 15:18:21 Yes 300mg Q.[id number] Take 300 mg by mouth 3 (three) times a day. Carl Holly zolpidem (AMBIEN) 10 mg tablet 2019-08-01 15:18:21 Yes 10mg QD Take 10 mg by mouth nightly as needed for sleep. Carl Holly HYDROcodone-acetaminophen (NORCO) 10-325 mg per tablet 2019-08-01 00:00:00 2019-08-31 23:59:00 No acute pain 1{tbl} Q6H Take 1 tablet by mouth every 6 (six) hours as needed for moderate pain for up to 30 days .acute pain. Max Daily Amount: 4 tablets Carl Holly traMADol (ULTRAM) 50 mg tablet 2019-08-01 00:00:00 2019-08-07 6 23:59:00 No chronic pain 50mg Q6H Take 1 tablet (50 mg total) by mouth every 6 (six) hours as needed for moderate pain for up to 30 days .acute pain, chronic pain. Carl Holly celecoxib (CeleBREX) 200 MG capsule 2019-08-01 00:00:0 0 2019-08-31 23:59:00 No 200mg Q.5D Take 1 capsule (200 mg total) by mouth 2 (two) times a day for 30 days. Carl Holly methocarbamol (ROBAXIN) 500 MG tablet 2019-08-01 00:00 :00 2019-08-31 23:59:00 No 500mg Q.25D Take 1 tablet ( 500 mg total) by mouth 4 (four) times a day for 30 days. Carl Holly celecoxib (CeleBREX) 200 MG capsule 2019-07-15 14:10:0 7 2019-07-15 00:00:00 No 200mg Q.5D Take 200 mg by mouth 2 (two) times a day . Carl Holly methocarbamol (ROBAXIN) 500 MG tablet 2019-07-15 00:00 :00 2019-08-14 23:59:00 No 500mg Q.25D Take 1 tablet ( 500 mg total) by mouth 4 (four) times a day as needed for muscle spasms for up to 30 days. Carl Holly celecoxib (CeleBREX) 200 MG capsule 2019-07-15 00:00:0 0 2019-08-14 23:59:00 No 200mg Q.5D Take 1 capsule (200 mg total) by mouth 2 (two) times a day for 30 days. Carl Holly celecoxib (CeleBREX) 200 MG capsule 2019-07-15 00:00:0 0 2019-07-15 00:00:00 No 200mg Q.5D Take 1 capsule (200 mg total) by mouth 2 (two) times a day for 30 days. Carl Holly celecoxib (CeleBREX) 200 MG capsule 2019-07-15 00:00:0 0 2019-07-15 00:00:00 No 200mg Q.5D Take 1 capsule (200 mg total) by mouth 2 (two) times a day for 30 days. Carl Holly cephalexin (KEFLEX) 500 MG capsule 2019-07-12 00:00:00 202 23:59:00 No 500mg Q.25D Take 1 capsule ( 500 mg total) by mouth 4 (four) times a day for 5 days. Carl Holly traMADol (ULTRAM) 50 mg tablet 2019-05-11 00:00:00 6 23:59:00 No chronic pain 50mg Q6H Take 1 tablet (50 mg total) by mouth every 6 (six) hours as needed for moderate pain for up to 30 days .Acute Pain, chronic pain. Carl Holly traMADol (ULTRAM) 50 mg tablet 2019-03-22 00:00:00 2019-04-05 7 23:59:00 No chronic pain 50mg Q8H Take 1 tablet (50 mg total) by mouth every 8 (eight) hours as needed for moderate pain for up to 30 days .chronic pain. Carl Holly losartan-hydrochlorothiazide (HYZAAR) 100-25 mg per tablet 2017-05-01 00:00:00 Yes 1{tbl} QD Take 1 tablet by mouth daily. Carl Holly sertraline (ZOLOFT) 50 MG tablet 2017-04-07 00:00:00 Yes 50mg QD Take 50 mg by mouth daily. Carl Holly simvastatin (ZOCOR) 40 MG tablet 2017-03-18 00:00:00 Yes 40mg QD Take 40 mg by mouth every morning. Carl Met bebeto Immunizations Ordered Immunization Name Filled Immunization Name Date Status Comments Source FLUCELVAX QUAD PF 2018-09-09 00:00:00 Completed Carl Holly FLUCELVAX QUAD PF 2017-05-18 00:00:00 Completed Carl Holly Vital Signs Vital Name Observation Time Observation Value Comments Source Systolic blood pressure 2019-07-15 12:38:00 160 mm[Hg] Carl Holly Diastolic blood pressure 2019-07-15 12:38:00 70 mm[Hg] Carl Holly Heart rate 2019-07-15 12:38:00 60 /min Carl Holly Body temperature 2019-07-15 11:09:22 36.5 Nancy [place] [employer] Respiratory rate 2019-07-15 11:09:22 16 /min [place] [employer] Oxygen saturation in Arterial blood by Pulse oximetry 07-15 11:09:22 100 /min Carl Holly Body height 2019-07-14 08:27:00 152.4 cm Carl Holly Body weight 2019-07-14 08:27:00 44.634 kg Carl Holly BMI 2019-07-14 08:27:00 19.22 kg/m2 Carl Holly Procedures Procedure Date / Time Performed Performing Clinician Sourc e XR SHOULDER 2+ VW LEFT 2019-08-01 15:48:32 Davie Krishnan on Religion CREATININE LEVEL 2019-07-14 16:57:00 Davie Krishnan Met bebeto ESTIMATED GFR 2019-07-14 16:57:00 Davie Krishnan POC GLUCOSE 2019-07-14 11:30:00 Davie Krishnan SURGICAL PATHOLOGY REQUEST 2019-07-14 11:00:00 Davie Krishnan TRANSFUSE RED BLOOD CELLS 2019-07-14 10:34:09 Karlee Gamboa ARTERIAL LINE 2019-07-14 09:44:18 Charli Griffith FL AN ELECTIVE ENDOTRACHEAL AIRWAY 2019-07-14 09:21:43 Neto Griffith SHOULDER REPLACEMENT, TOTAL, REVERSE 2019-07-14 09:08:00 Davie Krishnan ANESTHESIA PERIPHERAL BLOCK 2019-07-14 08:53:09 Charli Griffith POC GLUCOSE 2019-07-14 08:36:00 Davie Krishnan odjamel URINE CULTURE 2019-07-07 14:14:00 Sarah Beth Pringle GRAM STAIN 2019-07-07 14:14:00 Sarah Beth Pringle ECG PRE/POST OP 2019-07-07 12:16:17 Sarah Beth Pringle URINALYSIS SCREEN AND MICROSCOPY, WITH REFLEX TO CULTURE 202 12:05:00 Sarah Beth Pringle COMPREHENSIVE METABOLIC PANEL 2019-07-07 12:04:00 Sarah Beth Mora CBC HEMOGRAM 2019-07-07 12:04:00 Sarah Beth Pringle HEMOGLOBIN A1C 2019-07-07 12:04:00 Sarah Beth Pringle ESTIMATED GFR 2019-07-07 12:04:00 Sarah Beth Pringel PREPARE RBC 2019-07-07 12:04:00 Sarah Beth Pringle XR LUMBAR SPINE AP LATERAL FLEXION AND EXTENSION 2019-06-09 14:28:15 Josseline Dorman MRI SHOULDER WO CONTRAST LEFT 2019-05-05 09:10:00 Davie Krishnan MRI SHOULDER WO CONTRAST RIGHT 2019-04-20 15:45:00 Davie Krishnan EMG 2019-04-14 14:36:05 Davie Krishnan Meth odjamel XR SHOULDERS BILATERAL 2019-04-04 13:27:16 Davie Krishnan on Religion Plan of Care Planned Activity Planned Date Details Comments Source Future Scheduled Test 2020-04-05 00:00:00 INFLUENZA VACCINE [code = INFLUENZA VACCINE] [facility] Future Scheduled Test 2015 00:00:00 65+ PNEUMOCOCCAL V ACCINE (1 of 2 - PCV13) [code = 65+ PNEUMOCOCCAL VACCINE (1 of 2 - PCV13)] [facility] Future Scheduled Test 2000 00:00:00 BREAST CANCER SCRE ENING [code = BREAST CANCER SCREENING] [facility] Future Scheduled Test 2000 00:00:00 COLONOSCOPY SCREEN ING [code = COLONOSCOPY SCREENING] [facility] Future Scheduled Test 2000 00:00:00 SHINGLES VACCINES (#1) [code = SHINGLES VACCINES (#1)] [facility] Encounters Start Date/Time End Date/Time En[facility] Source 2019-07-14 00:00:00 2019-07-15 00:00:00 Inpatient DAVIE KRISHNAN [facility] [id number] [facility] 2019-06-09 00:00:00 2019-06-09 00:00:00 Outpatient JOSSELINE DORMAN [facility] [id number] [facility] 2019-05-05 00:00:00 2019-05-05 00:00:00 Outpatient DAVIE KRISHNAN [facility] [id number] [facility] 2019-04-20 00:00:00 2019-04-20 00:00:00 Outpatient DAVIE KRISHNAN [facility] [id number] [facility] 2019-04-20 00:00:00 2019-04-20 00:00:00 Outpatient DAVIE KRISHNAN [facility] [id number] [facility] Results Test Description Test Time Test Comments Results Result Comments Source Surgical pathology request 2019-07-19 16:27:52 Test Item Case number (test code = 3352649) [id number] Surgical pathology report (test code = 2255) See link below for PDF Lab Report Result status (test code = 1302456) This is Final Report for [id number] [facility] HospitalCreatinine [id number] 19:31:29* Test Item Value Reference Range Interpretation Comments Creatinine (test code = 2160-0) 0.59 mg/dL 0.5-0.9 [facility] MethodistEstimated [id number] 19:31:29* Test Item Value Reference Range Interpretation Comments Estimated GFR (test code = 5488) >=90 mL/min/1.73 m2 Catergory Units InterpretationG1 >=90 Normal or highG2 60-89 Mildly yhaejwrelA6i 45-59 Mildly to moderately gkzpgcnukG7m 30-44 Moderately to severely decreasedG4 15-29 Severely decreasedG5 <15 Kidney failureThe eGFR was calculated using the Chronic Kidney Disease Epidemiology Collaboration (CKD-EPI) equation. Interpretation is based on recommendations of the National Kidney Foundation-Kidney Disease Outcomes Quality Initiative (NKF-KDOQI) published in 2014. Carl FarraristPrepare [id number] 11:35:00* Test Item Value Reference Range Interpretation Comments Product name (test code = 25) Red Blood Cells -1, Leukored Unit number (test code = 1818677) [id number] Product code (test code = 3092) [id number] Dispense status (test code = 24) Returned to not transfused Blood expiration date (test code = 302) [id number] Blood type code (test code = 308) 5100 Blood type (test code = 1314) O POSITIVE Compatibility (test code = 6400) Compatible [place] LeniistPOC [id number] 11:31:24* Test Item Value Reference Range Interpretation Comments POC glucose (test code = 32767-8) 113 mg/dL 65-99 H Core Laying Machine Operator Name: Geoff MckeonGary ID: [id number]: [facility] Notified soil surveyor Interpretation (test code = 59218-9) Abnormal [place] MethodistArterial [id number] 09:44:18SzaryKarlee 07/14/2019 9:44 AMArterial linePerformed by: Charli Griffith II, MDAuthorized by: Charli Griffith II, MD Patient Location: ORStart Time: 07/14/2019 9:44 AMEnd Time: 07/14/2019 9:44 AMStaff: Performed by: AnesthesiologistPre- procedure: patient identified, IV checked, site and side verified, risks and benefits discussed, procedure verified, surgical consent complete, patient position confirmed, monitors and equipment checked and pre-op evaluation complete MSBT: antiseptic used, hand hygiene performed and cap/gown used by ot er personnel Indications: Indications: hemodynamic monitoring Anesthesia: Anesthesia: GeneralProcedure Details: Arterial Line placement: Placed post i nduction Line placement site: RadialLine placement side: Right Arterial line gauge: 20 GNumber of attempts: 1 Ultrasound guidance used: Yes Post-procedu re: Post-procedure: Sterile dressing applied Post procedure circulation, sen sation, movement: Unable to assess Patient tolerance: Patient tolerated the p rocedure well with no immediate complicationsCarl OumtasrxtRlxplx7920-31-02 09:21:43Karlee Gamboa 07/14/2019 10:20 AMAirwayDate/Time: 07/14/2019 9:21 AMPerformed by: Charli Griffith II, MDAuthorized by: Charli Griffith II, MD Location: ORUrgency: ElectiveDifficult Airway: No Resident/SIDE SEAM TENDER/AA: Karlee GamboaPerformed by: resident/SIDE SEAM TENDER/AAPreoxygenated with 100% O2: Yes C-spine Precautions Maintained Throughout: Yes Mask Ventilation: Easy maskFinal Airway Type: Endotracheal airwayFinal Endotracheal Airway: ETTCuffed: Yes Technique Used: Video laryngoscopyDevices/Methods Used in Placement: Intubating styletInsertion Site: OralBlade Type: MacintoshLaryngoscope Blade/Videolaryngoscope Blade Size: 3ETT Size (mm): 7.0Cuff at minimum occlusion pressure: Yes Measured from: LipsETT to Lips (cm): 21Placement Verified by: CO2 detection, direct visualization and equal breath sounds Laryngoscopic view: Grade I - full view of glottisNumber of Attempts at Approach: 1 #3 glidescope used for intubation d/t previous spinal surgery. Atraumatic. Dentition unchangedHoubertin MethodistPeripheral Block 2019-07-14 08:53:09Charli Griffith II, MD 07/14/2019 8:53 AMPeripheral BlockPerformed by: Charli Griffith II, MDAuthorized by: Charli Griffith II, MD Patient Location: Pre-opStart Time: 07/14/2019 8:40 AMEnd Time: 07/14/2019 8:51 AMReason for Block: at surgeon's request, post-op pain management Staff: Performed by: AnesthesiologistPreprocedure: patient identified, IV checked, site and side verified, risks and benefits discussed, procedure verified, surgical consent complete, patient position confirmed, monitors and equipment checked, pre-op evaluation complete, site marked and coagulation status reviewed Peripheral Nerve Block: Patient Position: Supine Prep: ChloraPrep Monitoring: Blood pressure monitoring, continuous pulse oximetry and heart rateBlock Type: InterscaleneLaterality: LeftInjection Technique: Catheter insertionProcedures: ultrasound guided Ultrasound documentation: Images saved on hard disk and printed/placed in chartLocal Infiltration (See MAR for details): RopivacaineNeedle: Needle Type: Pajunk Needle Gauge: 19 G Needle Length: 10 cm Catheter Size: 20 G Catheter at Skin Depth: 6 cmAssessment: Injection Assessment: Visualized needle/local anesthetic surrounding nerve, visualized pertinent vascular structures and nerves, needle tip visualized at all times during injection of medication, no symptoms of intraneural/intravenous injection and intermittent aspiration during local anesthetic administration Paresthesia Pain: None Heart Rate Change: No Sl ow Fractionated Injection: Yes Block outcome: No apparent complications, pat ient comfortable and patient tolerated procedure wellOrleans MethodistGram stain 2019-07-08 17:09:11* Test Item Value Reference Range Interpretation Comments Gram stain result (test code = 664-3) No WBC's or organisms seen. Specimen InformationSpecimen Source: UrineSpecimen Site: Clean catch [place] Daina Pre/Post [id number] 22:19:07* Test Item Value Reference Range Interpretation Comments Ventricular rate (test code = 253) 54 Atrial rate (test code = 255) 54 FL interval (test code = 266) 124 QRSD interval (test code = 260) 124 QT interval (test code = 264) 434 QTC interval (test code = 265) 411 P axis 1 (test code = 267) 59 QRS axis 1 (test code = 268) 17 T wave axis (test code = 270) 56 EKG impression (test code = 273) Sinus bradycardia-Rig ht bundle branch block- Abnormal ECG-In automated comparison with ECG of 23-AUG-2018 08:44,-Right bundle branch block has replaced Incomplete right bundle branch block- Henry MethodistType and [id number] 14:55:00* Test Item Value Reference Range Interpretation Comments ABO grouping (test code = 883-9) O Rh type (test code = 40724-4) POS Antibody screen (gel) (test code = 890-4) NEG [place] MethodistUrinalysis screen and microscopy, with reflex to culture 2019-07-07 14:24:14* Test Item Value Reference Range Interpretation Comments Specimen site (test code = 7523542) Clean catch Color, UA (test code = 5778-6) Straw Appearance, UA (test code = 5767-9) Clear Specific gravity, UA (test code = 5811-5) 1.014 1.001-1.035 pH, UA (test code = 5803-2) 7.0 5.0-8.5 Protein, UA (test code = 52184-1) Negative Negative Glucose, UA (test code = 97002-5) Negative Negative Ketones, UA (test code = 2514-8) Negative Negative Bilirubin, UA (test code = 5770-3) Negative Negative Blood, UA (test code = 5794-3) Negative Negative Nitrite, UA (test code = 5802-4) Negative Negative Urobilinogen, UA (test code = 69250-3) <2.0 <2.0 Leukocyte esterase, UA (test code = 5799-2) Trace Negative A Epithelial cells, UA (test code = 5787-7) 2 /HPF Round epithelial cells, UA (test code = 77679-8) 1 0- 1 /HPF WBC, UA (test code = 5821-4) 4 0- 4 /HPF RBC, UA (test code = 20200-4) <1 0- 5 /HPF Bacteria, UA (test code = 86996-2) None seen None seen Yeast, UA (test code = 25548-9) None seen Yeast with pseudohyphae, UA (test code = 86453-1) None seen Hyaline casts, UA (test code = 5796-8) 1 /LPF Lab Interpretation (test code = 76874-0) Abnormal [place] MethodistComprehensive metabolic [id number] 14:13:03* Test Item Value Reference Range Interpretation Comments Sodium (test code = 2951-2) 141 135- 148 mEq/L Potassium (test code = 2823-3) 4.2 3.5- 5.0 mEq/L Chloride (test code = 2074-0) 102 98- 112 mEq/L CO2 (test code = 2027-) 23 24- 31 mEq/L L Anion gap (test code = 14746-5) 16@ANIO 7- 15 mEq/L H BUN (test code = 3094-0) 20 mg/dL 8-23 Creatinine (test code = 2160-0) 0.61 mg/dL 0.5-0.9 Glucose (test code = 2345-7) 71 mg/dL 65-99 Calcium (test code = 24965-1) 9.4 mg/dL 8.8-10.2 Protein (test code = 2885-2) 7.1 g/dL 6.3-8.3 Tnfmbrq7928.6-7.0 g/dL1 rsmy7238.4-7.6 g/dL7 months-9bqmw239.1-7.3 g/dL1-2 ynuap759.6-7.5 g/dL>3 uqqhr626.0-8.0 g/kT55-8776694.3-8.3 g/dL Albumin (test code = 1751-7) 3.5 g/dL 3.5-5 A/G ratio (test code = 1759-0) 1.0 0.7-3.8 Alkaline phosphatase (test code = 6768-6) 82 U/L 35-104 AST (test code = 1920-8) 13 U/L 10-35 ALT (test code = 1742-6) 7 U/L 5-50 Total bilirubin (test code = 1974-) <0.2 0-1.2 Lab Interpretation (test code = 87955-3) Abnormal [place] MethodistHemoglobin [id number] 14:04:41* Test Item Value Reference Range Interpretation Comments Hemoglobin A1C (test code = 28139-3) 6.4 % 4-5.6 H HbA1c cutoffs for diagnosing diabetes:4.0% - 5.6% = normal5.7% - 6.4% = increased risk for diabetes (prediabetes)9>=6.5% = gjxyicbv0Giryg for glycemic control (ADA 2016)< 7.0% Target for non adults with diabetes. More or less stringent targets may be appropriate for individual patients. <7.5% Target for Children and adolescents with type 1 diabetes. Lab Interpretation (test code = 25628-5) Abnormal [facility] [id number] 13:50:45* Test Item Value Reference Range Interpretation Comments WBC (test code = 51345-9) 6.52 4.50- 11.00 k/uL RBC (test code = 07716-8) 3.76 m/uL 4.2-5.5 L HGB (test code = 718-7) 9.7 g/dL 12-16 L HCT (test code = 4544-3) 31.1 % 37-47 L MCV (test code = 787-2) 82.7 fL 82-100 MCH (test code = 785-6) 25.8 pg 27-34 L MCHC (test code = 786-4) 31.2 g/dL 31-37 RDW - SD (test code = 73409-1) 55.8 fL 37-55 H MPV (test code = 57743-6) 9.8 fL 8.8-13.2 Platelet count (test code = 23807-9) 371 150- 400 k/uL Nucleated RBC (test code = 25270-9) 0.00 /100 WBC Lab Interpretation (test code = 33745-4) Abnormal [place] MethodistXR Lumbar Spine Ap Lateral Flexion And [id number] 15:52:18Hm Interface, Radiology Results 06/09/2019 3:55 PM CSTEXAMINATION: XR LUMBAR SPINE AP LATERAL FLEXION AND EXTENSIONCLINICAL HISTORY: M54.16 Radiculopathy lumbar region, lumbar radiculopathyCOMPARISON: September 21, 2018IMPRESSION:4 views of the lumbar spine were obtained.5 nonrib- bearing lumbar type vertebrae.L3-L5 posterior fusion with transpedicular screws and interconnecting rods. Laminectomy changes at these levels. Solid bony bridging of the L4-5 disc level. No significant bony bridging of the L3-4 disc level.Prominent dextroscoliosis centered at the L2-3 level. Left lateral listhesis at L2-3.Grade 1 anterolisthesis at L2-3.Prominent disc space narrowing and endplate degenerative changes at L2-3.No compression fractures or aggressive bony lesions.No abnormal motion on flexion-extension views.[facility]-[id number] [facility] Shoulder Wo Contrast [id number] 10:04:40Hm Interface, Radiology Results - 05/05/2019 10:07 AM CDTEXAMINATION: MRI SHOULDER WO CONTRAST LEFTCLINICAL HISTORY: M19.011 Primary osteoarthritis right shoulder, M19.012 Primary osteoarthritis left shoulder, Shoulder pain acute persistent xray and exam nonspecificTECHNIQUE: Multiplanar multisequence MR imaging of the shoulder was performed without contrast.COMPARISON: None availableFINDINGS:1. Rotator cuff: Chronic full-thickness full width retracted tears of the supraspinatus and infraspinatus tendons with retraction of the torn tendon stump to the level of the glenoid by approximately 5 cm. The subscapularis tendon demonstrates severe tendinosis with low-grade partial thickness tearing of the superior subscapularis footprint.2. Bursa: Moderate subacromial subdeltoid b ursitis.3. Biceps tendon: The long head of the biceps tendon is located within t he bicipital groove. Severe intra-articular biceps tendinosis with partial-thick ness tearing.4. Labrum: Circumferentially torn and degenerated.5. Acromioclavicu lar joint: Type II acromion process. Mild to moderate osteoarthrosis6. Glenohume ral joint: Superior migration of the humeral head with severe narrowing of the a cromiohumeral interval. There is also capsular tearing and laxity of the posteri or glenohumeral capsule with posterior subluxation of the humeral head relative to the glenoid.7. Articular cartilage: Grade IV chondromalacia and dotd-vu-unwe apposition.8. Joint Fluid:A small joint effusion is present. No definite loose b james is seen. Diffuse synovitis. Fluid in the subcoracoid bursa consistent with a full-thickness rotator cuff tear.9. Bone marrow: Osseous remodeling subchondral edema and cyst formation involving the glenoid more than the proximal humerus. No fracture or definite suspicious bony lesion is appreciated.10. Soft tissues: Severe atrophy of supraspinatus and infraspinatus. Moderate subscapularis atroph y. Mild to moderate loss of deltoid muscle bulk.IMPRESSION:1.Superior migration of the humeral head with chronic full-thickness full width retracted supraspinat us and infraspinatus tears with severe muscle atrophy.2.Advanced rotator cuff ar thropathy with full-thickness chondral loss and [id number] apposition.3.Additi onal findings and details as above.[facility]-[id number] MethodistMRI Shoulder Wo Contrast [id number] 16:34:28Hm Interface, Radiology Results - 04/20/2019 4:37 PM CDTEXAMINATION: MRI SHOULDER WO CONTRAST RIGHTCLINICAL HISTORY: M19.011 Primary osteoarthritis right shoulder, M19.012 Primary osteoarthritis left shoulder, Shoulder pain acute persistent xray and exam nonspecificTECHNIQUE: Multiplanar multisequence MR imaging of the right shoulder was performed without contrast.COMPARISON: X-ray 04/04/2019 IMPRESSION:1.Motion artifact degrades image quality and decreases sensitivity of exam.ROTATOR CUFF: High-grade interstitial insertional tear spanning the [...] moderate extra articular bicipital tenosynovitis and intra-articular t endinitis with low-grade interstitial partial tearing most pronounced towards th e anchor. GLENOHUMERAL JOINT: Superior decentering of the humeral head. Full-thi ckness chondral loss across both sides of the glenohumeral joint most pronounced on the glenoid side, with reactive marrow change and cystic formation. BONE MAR ROW: Reactive changes in the glenohumeral joint as discussed above. AC JOINT: Hy pertrophy of AC joint degenerative in etiology. Acromion has a slight lateral do wnsloping. Type II morphology. SOFT TISSUES: Mild subacromial-subdeltoid bursiti s. Mild subcoracoid bursitis. Coracohumeral interval is narrow, 7 mm, with remod eling of the lesser tuberosity humeral head. Mild volumetric muscle loss of the deltoid, though no fatty atrophy.SUMMARY: 1. Moderate to severe glenohumeral nita int OA, with rotator cuff tendinopathy and atrophy as detailed above. Mild volum etric muscle loss of the deltoid, though no fatty atrophy.2.Coracohumeral interv al with subscapularis tendinosis and remodeling of the lesser tuberosity can be correlated for clinical evidence of subcoracoid impingement.3.Lateral downslopin g acromion with mild subjacent bursitis can be correlated for clinical evidence of external impingement.4.Other findings as above. Motion limited study.PI-2U [id number] Religion
[2020-02-28 11:17] LABS: ALANINE AMINOTRANSFERASE 14 IU/L (0-55); ALBUMIN 3.5 g/dL (3.5-5.0); ALKALINE PHOSPHATASE 59 IU/L (40-150); ANION GAP 17.5 mmol/L (8-16); BLOOD UREA NITROGEN 19 mg/dL (7-26); BUN/CREATININE RATIO 30 (6-25); CALCIUM 8.8 mg/dL (8.4-10.2); CARBON DIOXIDE 16 mmol/L (22-29); CHLORIDE 105 mmol/L (98-107); CREATININE, SERUM 0.64 mg/dL (0.57-1.11); EST GLOMERULAR FILTRATION RATE > 60 ML/MIN (60-); GLUCOSE 77 mg/dL (74-118); POTASSIUM 3.5 mmol/L (3.5-5.1); SODIUM 135 mmol/L (136-145)
--- NOTE | 2020-02-28 11:32 | Diagnostic Imaging Report ---
EXAMINATION: CHEST SINGLE (PORTABLE) INDICATION: Sepsis COMPARISON: None FINDINGS: LINES/TUBES:EKG leads overlie the chest. LUNGS:The lungs are well-inflated. No focal consolidation or pulmonary edema. PLEURA:No pleural effusion or pneumothorax. MEDIASTINUM:The cardiomediastinal silhouette appears normal in size and shape. BONES/SOFT TISSUES:No acute osseous injury. Cervicothoracic spinal fusion hardware partially visualized. Left shoulder arthroplasty hardware. Elevation of the right humeral head likely related to chronic right rotator cuff injury. ABDOMEN:No free air under the diaphragm. IMPRESSION: No focal pneumonia or pulmonary edema. Signed by: Lani Williamson MD on 02/28/2020 11:29 AM
--- NOTE | 2020-02-28 11:37 | Emergency Department Note ---
History of Present Illnes History of Present Illness Chief Complaint: Respiratory History of Present Illness This is a 69 year old female Chief Complaint Comment 69 y/o female presents to ED with c/o weakness and sob when laying flat x 2 weeks. Pt arrived noted to have agonal mouth breathing, accessory muscle usage noted. Mucous membraines dry. Pt alert to self and place. Pt has increased weakness on L side, weakness on R side due fractured shoulder fracture. 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 Any updates have been documented here. Past Medical History Recent Fever: No Clinical Suspicion of Infectio: Yes New/Unexplained Change in Ment: Yes Other Medical History: HIGGH CHOLESTEROL Other Surgery: BACK Social History Smoking Cessation: Current every day smoker Counseling Performed: No Alcohol Use: None Any Illegal Drug Use: No Physically hurt or threatened: No Other Last Tetanus: >10 YEARS Any Pre-Existing Lines (PICC,: No Review of Systems Review of Systems Constitutional: Reports no symptoms EENTM: Reports no symptoms Cardiovascular: Reports no symptoms Respiratory: Reports no symptoms Gastrointestinal: Reports no symptoms Genitourinary: Reports no symptoms Musculoskeletal: Reports no symptoms Integumentary: Reports no symptoms Neurological: Reports no symptoms Psychological: Reports no symptoms Endocrine: Reports no symptoms Hematological/Lymphatic: Reports no symptoms Physical Exam Related Data Allergies: Coded Allergies: No Known Drug Allergies (Verified Allergy, Unknown, 04/11/10) Uncoded Allergies: DUST (Allergy, Mild, SNEEZING, SNIFFY NOSE, 04/10/10) Triage Vital Signs Vital Signs Date Time Temp Pulse Resp B/P (MAP) Pulse Ox O2 Delivery O2 Flow Rate FiO2 02/28/20 10:15 97.9 69 28 125/67 100 Room Air Vital signs reviewed: Yes Physical Exam CONSTITUTIONAL Constitutional: Present well-developed, Present well-nourished HENT HENT: Present normocephalic, Present atraumatic, Present oropharynx clear/moist, Present nose normal HENT L/R: Present left ext ear normal, Present right ext ear normal EYES Eyes: Reports PERRL, Reports conjunctivae normal NECK Neck: Present ROM normal PULMONARY Pulmonary: Present effort normal, Present breath sounds normal CARDIOVASCULAR Cardiovascular: Present regular rhythm, Present heart sounds normal, Present capillary refill normal, Present normal rate GASTROINTESTINAL Abdominal: Present soft, Present nontender, Present bowel sounds normal GENITOURINARY Genitourinary: Present exam deferred SKIN Skin: Present warm, Present dry MUSCULOSKELETAL Musculoskeletal: Present ROM normal NEUROLOGICAL Neurological: Present alert, Present oriented x 3, Present no gross motor or sensory deficits PSYCHOLOGICAL Psychological: Present mood/affect normal, Present judgement normal Results Laboratory Result Diagram: 02/28/20 1026 02/28/20 1026 Laboratory Laboratory Tests Test 02/28/20 10:28 02/28/20 10:26 Arterial Blood pH 7.43 (7.35-7.45) Arterial Blood Partial Pressure CO2 25 mmHg (35-45) Arterial Blood Partial Pressure O2 101 mmHg (80-105) Arterial Blood HCO3 17 mmol/L (22-26) Arterial Blood Total CO2 17 Arterial Blood Oxygen Saturation 98.0 % (95-98) Arterial Blood Base Excess -8.0 mmol/L (-2 - 3) FiO2 21 % White Blood Count 7.20 x10e3/uL (4.8-10.8) Red Blood Count 4.09 x10e6/uL (3.6-5.1) Hemoglobin 7.3 g/dL (12.0-16.0) Hematocrit 25.6 % (34.2-44.1) Mean Corpuscular Volume 62.6 fL (81-99) Mean Corpuscular Hemoglobin 17.8 pg (28-32) Mean Corpuscular Hemoglobin Concent 28.5 g/dL (31-35) Red Cell Distribution Width 26.5 % (11.7-14.4) Platelet Count 464 x10e3/uL (140-360) Neutrophils (%) (Auto) 60.9 % (38.7-80.0) Lymphocytes (%) (Auto) 27.5 % (18.0-39.1) Monocytes (%) (Auto) 7.8 % (4.4-11.3) Eosinophils (%) (Auto) 1.7 % (0.0-6.0) Basophils (%) (Auto) 1.4 % (0.0-1.0) Neutrophils # (Auto) 4.4 (2.1-6.9) Lymphocytes # (Auto) 2.0 (1.0-3.2) Monocytes # (Auto) 0.6 (0.2-0.8) Eosinophils # (Auto) 0.1 (0.0-0.4) Basophils # (Auto) 0.1 (0.0-0.1) Absolute Immature Granulocyte (auto 0.05 x10e3/uL (0-0.1) Sodium Level 135 mmol/L (136-145) Potassium Level 3.5 mmol/L (3.5-5.1) Chloride Level 105 mmol/L (98-107) Carbon Dioxide Level 16 mmol/L (22-29) Anion Gap 17.5 mmol/L (8-16) Blood Urea Nitrogen 19 mg/dL (7-26) Creatinine 0.64 mg/dL (0.57-1.11) Estimat Glomerular Filtration Rate > 60 ML/MIN (60-) BUN/Creatinine Ratio 30 (6-25) Glucose Level 77 mg/dL (74-118) Lactic Acid Level 0.9 mmol/L (0.5-2.0) Calcium Level 8.8 mg/dL (8.4-10.2) Total Bilirubin 0.1 mg/dL (0.2-1.2) Aspartate Amino Transf (AST/SGOT) 29 IU/L (5-34) Alanine Aminotransferase (ALT/SGPT) 14 IU/L (0-55) Alkaline Phosphatase 59 IU/L (40-150) Total Protein 7.0 g/dL (6.5-8.1) Albumin 3.5 g/dL (3.5-5.0) Globulin 3.5 g/dL (2.3-3.5) Albumin/Globulin Ratio 1.0 (0.8-2.0) Procedures 12 Lead ECG Interpretation ECG Interpretation : ECG: ECG 1 [place] Dep[place] Clerk: Interpreted by ED physician Date: Feb 28, 2020 Rhythm: sinus rhythm Rate: bradycardia BPM: 51 QRS axis: normal Conduction: right bundle branch block ST segments normal: Yes T waves normal: Yes Clinical Impression: abnormal ECG Assessment & Plan Medical Decision Making MDM 69-year-old female presents for shortness of breath. Per patient is consulting with her mouth open and states that her throat hurts in the morning. Vital signs stable, within acceptable limits, oxygen saturation 100%and respiratory distress. Workup shows urinary tract infection. She was given Rocephin and will be discharged home on Keflex. Ct neck shows no airway compromise. They will follow up with their primary care provider or return to the emergency department for new or worsening symptoms. Patient's appropriate for discharge. Part of this note was dictated with Muna and is subject to recognition errors. Reassessment Reassessment time: 12:48 Reassessment Well appearing, NAD Assessment & Plan Final Impression: (1) UTI (urinary tract infection) Depart Disposition: HOME, SELF-CARE Last Vital Signs Date Time Temp Pulse Resp B/P (MAP) Pulse Ox O2 Delivery O2 Flow Rate FiO2 02/28/20 11:07 52 14 100 Room Air 02/28/20 10:15 97.9 Home Meds Active Scripts Cephalexin Monohydrate (KEFLEX) 500 Mg Capsule, 500 MG PO QID for 10 Days, #40 TAB 0 Refills Prov:DEBRA BUSH MD 02/28/20 Reported Medications Celecoxib* (CELEBREX*) 100 Mg Capsule, 200 MG PO DAILY, #30 CAP 01/25/17 Losartan Potassium (LOSARTAN POTASSIUM) 25 Mg Tablet, 25 MG PO DAILY 01/25/17 Simvastatin (SIMVASTATIN) 40 Mg Tablet, 40 MG PO 2099, #30 TAB 01/25/17 Sertraline Hcl (ZOLOFT) 25 Mg Tablet, 50 MG PO DAILY 10/21/12 DEBRA BUSH MD Feb 28, 2020 11:37
--- NOTE | 2020-02-28 12:03 | Diagnostic Imaging Report ---
Examination: CT head without contrast Clinical Indication: Confusion; altered mental status. Technique: Transaxial noncontrast images from the skull base through the vertex were obtained. Sagittal and coronal reformatted images were done. Dose modulation, iterative reconstruction, and/or weight based adjustment of the mA/kV was utilized to reduce the radiation dose to as low as reasonably achievable. Comparison: None. Findings: There is significant motion artifact on the scan. Scalp: No abnormalities. Bones: Intact. No fractures. No blastic or lytic lesions. Brain sulci: Appropriate for patient's age. Ventricles: Normal in size and configuration. No hydrocephalus. Extra-axial space: No large hemorrhage. Parenchyma: No large masses, large hemorrhage, or large acute or chronic cortical based vascular insults. Suprasellar region: No abnormalities. Craniocervical junction: The foramen magnum is patent. No Chiari one malformation. Impression: Despite limitation, no large intraparenchymal or extra-axial hemorrhage or large acute territorial infarct. Consider repeating examination when possible. Signed by: Dr. Rochelle Streeter M.D. on 02/28/2020 11:59 AM
[2020-02-28 12:12] LABS: CLARITY,URINE SL CLOUDY (CLEAR); COLOR,URINE YELLOW (YELLOW)
[2020-02-28 12:13] LABS: BILIRUBIN,URINE NEGATIVE (NEGATIVE); KETONES,URINE NEGATIVE (NEGATIVE); LEUKOCYTE ESTERASE ,URINE SMALL (NEGATIVE); NITRITE,URINE POSITIVE (NEGATIVE); PROTEIN,URINE DIPSTICK NEGATIVE (NEGATIVE); URINE UROBILINOGEN 0.2 mg/dL (0.2 - 1)
[2020-02-28 12:17] LABS: BACTERIA,URINE MANY /HPF; EPITHELIAL CELLS,URINE FEW /LPF; RBC,URINE 0-5 /HPF (0-5)
[2020-02-28] MEDS ORDERED: CEFTRIAXONE SOD 1 GM/NS 50 ML 50 ML IV ONE (12:45)
[2020-02-28 12:54] LABS: HYPOCHROMASIA MODERATE; MICROCYTOSIS SLIGHT
[2020-02-28 12:55] LABS: ANISOCYTOSIS MODERATE; RBC MORPHOLOGY COMMENT ABNORMAL; TARGET CELLS FEW
[2020-02-28 12:56] LABS: PLATELET ESTIMATE SLIGHTLY INCREASED; PLATELET MORPHOLOGY COMMENT NORMAL; SCHISTOCYTES RARE
[2020-02-28 12:57] LABS: OVALOCYTES FEW; TEAR DROP CELLS FEW
--- NOTE | 2020-02-28 15:32 | Diagnostic Imaging Report ---
Examination:CT SOFT TISSUE NECK WO CONTRAST History: Dysphagia. Obstructive airway. Comparison studies: None Technique: Axial images from the skull base to the thoracic inlet with coronal and sagittal reformats. Dose modulation, iterative reconstruction, and/or weight based adjustment of the mA/kV was utilized to reduce the radiation dose to as low as reasonably achievable. Findings: Evaluation of the neck is limited due to the absence of intravenous contrast. In spite of this limitation, Soft tissues: No abnormalities. Aerodigestive tract: No abnormality. Lymph nodes: No radiographically significant adenopathy. Thyroid gland: Normal in size and homogeneous. Submandibular glands: Normal in size and homogeneous. Parotid glands: Normal in size and homogeneous. Orbits: No abnormalities. Paranasal sinuses: Clear. Temporal bones: No abnormalities. Skull base and facial bones: Intact. Cervical spine: Prior posterior fusion surgery from C2 to T3 with C6 and C7 corpectomy and anterior fusion from C5 through T1. Decompressive laminectomy from C2 through C6. Anterolisthesis of C2 on C3 and C3 on C4. Visualized lung apices: No abnormalities. IMPRESSION: 1. No obstruction of the larynx or pharynx or cervical trachea. 2. Prior spinal surgery as detailed above. Signed by: Dr. Rochelle Streeter M.D. on 02/28/2020 3:28 PM
[2020-02-28] MEDS ORDERED: KEFLEX500 MG PO (15:37)
[2020-02-28 16:17] VITALS: BP 130/73
== END 2020-02-28 16:26 | disposition home or self-care (01) ==
LOC: ER 10:53
DX: N39.0 Urinary tract infection, site not specified (principal); R06.02 Shortness of breath; R53.1 Weakness; E78.00 Pure hypercholesterolemia, unspecified; F17.210 Nicotine dependence, cigarettes, uncomplicated
CPT/HCPCS: 36415; 36600; 51700; 70450; 70490; 71045; 80053; 81001; 82805; 83605; 85025; 87040; 87086; 87186; 87205; 93005; 99284; J0696; 87071